=== PATIENT | male | born 1940 | race Caucasian/White ===

== ENCOUNTER 2019-03-04 10:23 | Inpatient (IN) ==
--- NOTE | 2019-03-04 14:03 | PDOC ---
HPI - History of Present Illness History of Present Illness: Is a very nice 79-year-old gentleman who was operated on his right hip while doing physical therapy sustained a fall and fractured his hip and radiograph confirmed the periprosthetic femur fracture was called by Jarrod Appiah's is the PA to admit the patient is a direct admit for pain control Patient is 3 weeks post-op s/p Right ZULMA. Past Medical History Medical History: 1. Remote myocardial infarction and known coronary artery disease. 2. History of ureteral cancer. 3. History of lung cancer. 4. Hyp ertension. 5. Diabetes mellitus type II. 6. Right hip arthritis Surgical History: Radiation therapy for lung cancer, prior ureteral and kidney removal for cancer Past Social History: Quit smoking remotely almost 30 years ago. Rarely drinks alcohol. Had 4 children but only 2 daughters are still living. Is a of about a decade. Travels frequently. Tobacco Use: Former Smoker In the Past 12 Months, Have Used or Abuse Any of the Following Substance: None Medication / Allergies Home Medications: Home Medications Medication Instructions Recorded Confirmed Amitriptyline HCl 50 mg PO BEDTIME 02/08/19 02/10/19 Aspirin [Aspir 81] 81 mg PO DAILY 02/08/19 02/08/19 Ezetimibe/Simvastatin 1 ea PO DAILY 02/08/19 02/08/19 [Ezetimibe-Simvastatin 10-80 mg] Felodipine [Felodipine ER] 10 mg PO DAILY 02/08/19 02/08/19 Fenofibrate [Tricor] 145 mg PO DAILY 02/08/19 02/08/19 Losartan Potassium 100 mg PO DAILY 02/08/19 02/08/19 Metoprolol Succinate [Toprol XL] 100 mg PO DAILY 02/08/19 02/08/19 Sitagliptin Phosphate [Januvia] 100 mg PO DAILY 02/08/19 02/08/19 glipiZIDE Tab [Glucotrol Tab] 5 mg PO DAILY 02/08/19 02/08/19 Hydrocodone/Acetaminophen [[place]ite 1 - 2 ea PO Q4-6H PRN #60 tab 02/09/19 7.5-325 Tablet] Calcium Polycarbophil [Fiber Tabs] 2 tab PO DAILY 02/10/19 02/10/19 Glucosam/Chondr/Collagn/Hyalur 2 cap PO DAILY 02/10/19 02/10/19 [Glucosamine & Chondroitin Cap] Multivitamin [Once Daily] 1 tab PO DAILY 02/10/19 02/10/19 Acetaminophen [Tylenol] 325 - 650 mg PO Q4H PRN tab 02/11/19 Pantoprazole Sodium [Protonix] 40 mg PO QD 03/04/19 03/04/19 Allergies/Adverse Reactions: Allergies Allergy/AdvReac Type Severity Reaction Status Date / Time No Known Allergies Allergy Verified 03/04/19 12:41 Exam - Vitals Vital Signs: Vital Signs Temperature 97.5 F Temperature Source Temporal Artery Scan Pulse Rate [Pulse Oximeter] 94 Pulse Rate 94 Respiratory Rate 16 Blood Pressure [Right Arm] 124/66 Blood Pressure 124/66 Pulse Ox 91 Oxygen Flow Rate 1 Oxygen Delivery Method Room Air Height 5 ft 9 in Weight 213 lb Results - Labs CBC and BMP: 03/04/19 15:15 03/04/19 15:15 Assessment and Plan - Patient Problems (1) Hip fracture, right Current Visit: Yes Status: Acute Comment: Deferred to Dr. Appiah and Jarrod for preoperative care and DVT prophylaxis Code(s): S72.001A - Fracture of unspecified part of neck of right femur, initial encounter for closed fracture (2) Chronic kidney disease Current Visit: No Status: Acute Comment: We'll hydrate the patient to optimize his kidney function with LR 125 an hour Code(s): N18.9 - Chronic kidney disease, unspecified Qualifiers: Chronic kidney disease stage: stage 3 (moderate) Qualified Code(s): N18.3 - Chronic kidney disease, stage 3 (moderate) (3) Diabetes mellitus type II, controlled Current Visit: No Status: Acute Comment: Continue current medication Code(s): E11.9 - Type 2 diabetes mellitus without complications Qualifiers: Diabetes mellitus residential insulin use: without superintendent marine oil terminal use Diabetes mellitus complication status: without complication Qualified Code(s): E11.9 - Type 2 diabetes mellitus without complications (4) Hypertension Current Visit: No Status: Acute Code(s): I10 - Essential (primary) hypertension Qualifiers: Hypertension type: essential hypertension Qualified Code(s): I10 - Essential (primary) hypertension
[2019-03-04] MEDS ORDERED: CYCLOBENZAPRINE 10 MG TABLET PO PRN (14:24)
--- NOTE | 2019-03-04 14:42 | ORTHO.PROG ---
Last Taken Vital Signs: Vital Signs - Last Taken Temperature 97.5 F 03/04/19 12:52 Pulse Rate 94 03/04/19 12:52 Respiratory Rate 16 03/04/19 12:52 Blood Pressure 124/66 03/04/19 12:52 Pulse Ox 91 03/04/19 12:52 Subjective: Patient is 3 weeks post-op s/p Right ZULMA. He suffered an incident at PT yesterday where he felt a snap in his hip with an acute onset of pain. Radiographs confirmed a noy-prosthetic femur fracture. Patient reports right hip pain as well as pain extending down his right femur. The pain medication is helping when he is not moving, but he has increased pain with ambulation or movement of the hip. Denies any current calf pain, CP, SOB, F/C, radiculopathy, or paresthesias. Objective: On exam, he is A&O x 3. He is comfortably laying the hospital bed. He is tender over the lateral hip and distal femur. ROM of the hip not tested. FAROM of the ankle and toes without difficulties. Negative calf tenderness. NV intact. Assessment: 3 weeks s/p Right ZULMA with 1 day following a noy-prosthetic femur fracture requiring revision of the femoral component. Patient admitted to the hospital for pain management until surgery. Plan: * femur fracture: scheduled for surgery with Dr. Appiah Friday for right ZULMA revision of femoral component with cables * Pain meds: continue hydrocodone 7.5/325mg 1-2 tabs every 4-6 hours prn pain; hospitalist will control breakthrough pain * Muscle spasms: continue flexeril 10mg 1 tab every 8 hours prn * TTWB with walker * DVT ppx: lovenox 30mg SC BID and SCDs * femur pain: 2 view right femur radiographs ordered * H/H ordered for baseline blood counts following fracture * consult PT to assist with ambulation as tolerated to keep patient moving until surgery * regular diet * call myself or Dr. Appiah with any orthopedic related questions
--- NOTE | 2019-03-04 15:29 | DI ---
RIGHT FEMUR EXAM, 03/04/2019 2:26 PM: Clinical History: Right femur fracture. Comparison Study: AP pelvis and right hip, 02/09/2019. Views: 3 views. Soft Tissues: No soft tissue swelling. Effusion: No joint effusion present. Joints: Status post total right hip replacement. Bones: There is a fracture through the lesser trochanter and the prosthetic femoral shank has become impacted further into the femoral shaft by approximately 3 cm. The prosthetic joint articulates isatu lly. Reading: Fracture of the lesser trochanter with impaction of the metallic femoral shank into the teller femora l shaft by approximately 3 cm.
[2019-03-04 15:35] LABS: BLOOD UREA NITROGEN 31 mg/dL (7-22); BUN/CREATININE RATIO 18.23 (6-20)
[2019-03-04 15:37] LABS: Hematocrit [HCT] 40.8 % (42.0-52.0); Hemoglobin [HGB] 13.2 g/dL (14.0-18.0); MEAN CORPUSCULAR HGB CONC 32.4 g/dL (33-37); MEAN CORPUSCULAR VOLUME 94.2 FL (80-90); MEAN PLATELET VOLUME 9.4 FL (7.4-12.2); RED BLOOD COUNT 4.33 10^6/uL (4.70-6.10)
[2019-03-04] MEDS ORDERED: HYDROmorphone 2 MG/1 ML IVP PRN (16:28)
[2019-03-04] MEDS ORDERED: ACETAMINOPHEN 325 MG TABLET PO PRN (16:40)
[2019-03-04] MEDS ORDERED: ONDANSETRON 4 MG/2 ML VIAL IVP PRN (16:40)
[2019-03-04] MEDS ORDERED: LIDOCAINE W/ SODIUM BICARB 0.5 ML SYR SUBD PRN (16:40)
[2019-03-04] MEDS ORDERED: LIDOCAINE HCL 2 % 10 ML JELLY URO-JECT TOPICAL PRN (16:40)
[2019-03-04] MEDS ORDERED: CALCIUM CARBONATE 500 MG (TUMS) CHEWABLE TABLET PO PRN (16:40)
[2019-03-04] MEDS ORDERED: DOCUSATE 100 MG CAPSULE PO PRN (16:40)
[2019-03-04] MEDS: Lactated Ringers 1,000 ML PRIMARY IV SCH (17:21)
[2019-03-04] MEDS: HYDROcodone-APAP 7.5 MG-325 MG TABLET PO PRN (20:03)
[2019-03-04] MEDS: AMITRIPTYLINE 25 MG TABLET PO SCH (20:04)
[2019-03-04] MEDS: ENOXAPARIN SODIUM 30 MG/0.3 ML SYRINGE SUBCUT SCH (20:06)
[2019-03-05 05:28] LABS: BASOPHILS # (AUTO) 0.01 10*3/UL; BASOPHILS % (AUTO) 0.1 % (0-1); EOSINOPHILS # (AUTO) 0.15 10*3/UL; EOSINOPHILS % (AUTO) 1.7 % (0-8); Hematocrit [HCT] 40.4 % (42.0-52.0); Hemoglobin [HGB] 12.8 g/dL (14.0-18.0); LYMPHOCYTES # (AUTO) 2.51 10*3/uL; MEAN CORPUSCULAR HGB CONC 31.7 g/dL (33-37); MEAN CORPUSCULAR VOLUME 94.8 FL (80-90); MEAN PLATELET VOLUME 9.9 FL (7.4-12.2); MONOCYTES # (AUTO) 1.33 10*3/UL (0.3-0.8); MONOCYTES % (AUTO) 15.4 % (5-15); NEUTROPHILS # (AUTO) 4.55 10*3/UL; NEUTROPHILS % (AUTO) 52.9 % (50-80); RED BLOOD COUNT 4.26 10^6/uL (4.70-6.10)
[2019-03-05 05:33] LABS: PLATELET MORPHOLOGY COMMENT NORMAL MORPHOLOGY (NORM); RBC MORPHOLOGY COMMENT NORMAL MORPHOLOGY (NORM); WBC MORPHOLOGY COMMENT NORMAL MORPHOLOGY (NORM)
[2019-03-05 05:43] LABS: BLOOD UREA NITROGEN 27 mg/dL (7-22); SERUM ALBUMIN 3.6 g/dL (3.5-4.8)
[2019-03-05] MEDS: PANTOPRAZOLE 40 MG TABLET PO SCH (06:51)
[2019-03-05] MEDS ORDERED: Simvastatin Tab 80 MG TAB PO SCH (09:00)
[2019-03-05] MEDS: HYDROcodone-APAP 7.5 MG-325 MG TABLET PO PRN ×3 (09:29→20:37)
[2019-03-05] MEDS: sitaGLIPtin Tab 100 MG TAB PO SCH (09:30)
[2019-03-05] MEDS: EZETIMIBE 10 MG TABLET PO SCH (09:30)
[2019-03-05] MEDS: FELODIPINE ER 5 MG TABLET PO SCH (09:30)
[2019-03-05] MEDS: ASPIRIN EC 81 MG TABLET PO SCH (09:30)
[2019-03-05] MEDS: FENOFIBRATE 145 MG TABLET PO SCH (09:30)
[2019-03-05] MEDS: METOPROLOL SUCCINATE 100 MG SR 24H TABLET PO SCH (09:30)
[2019-03-05] MEDS: ENOXAPARIN SODIUM 30 MG/0.3 ML SYRINGE SUBCUT SCH ×2 (09:33→20:21)
--- NOTE | 2019-03-05 10:57 | PT.PROG ---
Progress Note Progress Note: PT Treatment Time: 15 minutes S: Patient reports that his hip continues to be painful. O: Patient required mod assist for bed mobility. Patient sat EOB with CGA for balance. Patient requires min assist for balance with TTWB ambulation. Patient ambulated 5 feet to his chair and performed x5 sit to stands. patient was left in his chair with his feet elevated, ice on his hip, call light and necessities within reach. A: Patient tolerated treatment session fair with complaints of increased pain with movement. P: Continue per plan of care.
--- NOTE | 2019-03-05 11:26 | PDOC(PROG) ---
Interval History: Doing well no complaints well rehydrated Objective : Data - Labs CBC and BMP: 03/05/19 04:05 03/05/19 04:05 Objective : Exam - General General Appearance: Cooperative - Respiratory Respiratory Exam: Clear to Auscultation - Bilaterally, Breathing Non Labored, Normal To Percussion, Normal to Percussion and Palpation - Cardiovascular Cardiovascular Exam: RRR, No Murmur, No Clicks, No Gallops, No Rubs, PMI Non- Displaced - GI/Abdominal GI/Abdominal Exam: Normal Bowel Sounds, Non Tender, Non Distended, Soft, No Masses, No Hepatomegaly, No Splenomegaly, No Organomegaly Assessment and Plan - Patient Problems (1) Hip fracture, right Current Visit: Yes Status: Acute Comment: Deferred to orthopedic team Code(s): S72.001A - Fracture of unspecified part of neck of right femur, initial encounter for closed fracture (2) Chronic kidney disease Current Visit: No Status: Acute Comment: Prerenal patient was rehydrated and his BUN/creatinine is improving Code(s): N18.9 - Chronic kidney disease, unspecified Qualifiers: Chronic kidney disease stage: stage 3 (moderate) Qualified Code(s): N18.3 - Chronic kidney disease, stage 3 (moderate) (3) Diabetes mellitus type II, controlled Current Visit: No Status: Acute Comment: Stable Code(s): E11.9 - Type 2 diabetes mellitus without complications Qualifiers: Diabetes mellitus residential insulin use: without terminal carman use Diabetes mellitus complication status: without complication Qualified Code(s): E11.9 - Type 2 diabetes mellitus without complications (4) Hypertension Current Visit: No Status: Acute Code(s): I10 - Essential (primary) hypertension Qualifiers: Hypertension type: essential hypertension Qualified Code(s): I10 - Esse ntial (primary) hypertension
--- NOTE | 2019-03-05 14:27 | PTI REPORT ---
Thank you for the referral of Marcelino Soni. He was seen on 03/04/19 for an inpatient evaluation status post right hip fracture. SUBJECTIVE: The patient is an 79-year-old male who states that he had a right total hip replacement with a posterior approach on February 09, 2019. The surgery was performed by Dr. Appiah. The patient states that he was staying up in [place] with his daughter. He states that he was at physical therapy when he was stepping sideways on the hurdles. He states that he turned his leg funny and when he stepped he felt a crack and fell onto the ground. He states that he went back home to his daughters but did present today due to his hip pain and was found to have a hip fracture. He states that he will have surgery on Friday, March 08, 2019. The patient reports that at this time he is having right hip pain of 2 to 3/10 on the verbal analog scale (0=no pain, 10=worst pain). The patient states he is doing well but would like to try to get up in order to use the bathroom. Per orders, he is to be toe touch weight-bearing on the right side. The patient states that he does live in [place]. He reports that he lives alone and has no stairs besides some to the basement, which he does not need to go into regularly. The patient reports that after this surgery he will go back to his daughter's up in [place] and he states that she does have two steps into the home. PAST MEDICAL HISTORY: Past medical history can be found in the patient's medical record. OBJECTIVE FINDINGS: General observations: The patient was alert and oriented to setting upon PT arrival. The patient was supine in bed on one liter of oxygen. Bed mobility: The patient was able to transfer with assist of two to seated edge of bed. He did need some help to maneuver his right lower extremity. Transfers: A gait belt was placed around the patient and he was instructed on how to properly toe touch weight-bear on the right side with a walker. The patient transferred from a seated to standing position with verbal cueing and contact guard assist. The patient demonstrated fair initial standing balance with hand hold assist x2 on the walker. Ambulation: The patient ambulated 25 feet to the bathroom. He was able to maintain toe touch weight-bearing with very minimal cueing and did very well. He did need additional cueing when trying to perform turns with the walker. The patient was able to complete toileting activities independently but does require contact guard assist and cueing for proper placement of his right foot for transfers to sitting and from sitting to standing. The patient then ambulated 20 feet to the chair and transferred into the chair. He did have some difficulties controlling his descent into the chair and did kind of plop backwards. He was able to reposition himself in the chair after that. ASSESSMENT: The patient has good rehab potential. Problem List: Right hip fracture awaiting surgical repair on Friday Difficulties with ambulation Weight-bearing precautions of toe touch weight-bearing Difficulties with transfers due to right hip pain Physical Therapy Goals: To be met by discharge from inpatient: We will re-evaluate the patient after his surgery on Friday. Patient will be able to transfer from bed to stand with stand by assist x1. Patient will be able to ambulate with the walker following proper weight-bearing precautions of toe touch weight-bearing for at least 100 feet. TREATMENT PLAN: Patient will be seen B.I.D during the week and one time per day over the weekend as an inpatient to address the above goals and objectives. The patient will have surgery on Friday and we will pick him up after his surgery for further rehab after change in status. INITIAL TREATMENT: Treatment today consisted of the initial evaluation only. Following treatment the patient was left in chair with SCDs in place, call light within reach, and chair alarm set. ANG
[2019-03-05] MEDS ORDERED: diphenhydrAMINE 25 MG CAPSULE PO PRN (15:36)
--- NOTE | 2019-03-05 15:38 | PT.PROG ---
Progress Note Progress Note: S: pt reports he continues to have pain in his hip O: nsg okay'd prior to PT. pt instructed in sit to supine transfer with max assist x 1 , seated EOB balance is good. pt required CGA x 1 for sit to stand transfer with walker TTWB RLE. pt instructed to ambulate 15 feet around his room with CGA x 1 and TTWB R LE w walker. pt fatigued and was instructed to transfer to his chair with moderate cuing and walker RLE TTWB. pt left in his chair with call light within reach and chair alarm activated. A: pt tolerated therapy well today, continues to have pain. continues to benefit from skilled therapy to improve functional mobility prior to surgery. P: cont per POC
--- NOTE | 2019-03-05 15:46 | ORTHO.PROG ---
Last Taken Vital Signs: Vital Signs - Last Taken Temperature 97.5 F 03/05/19 13:00 Pulse Rate 94 03/05/19 15:00 Respiratory Rate 20 03/05/19 13:00 Blood Pressure 107/53 03/05/19 13:00 Pulse Ox 95 03/05/19 13:00 Subjective: Patient reports he did not sleep well last night. He has a lot on his mind with his current situation. He states his pain is currently controlled. Denies any CP, calf pain, SOB, F/C, paresthesias, or radiculopathy. Objective: Laboratory Results 03/04/19 03/04/19 03/05/19 15:15 15:15 04:05 WBC 11.30 H 8.61 RBC 4.33 L 4.26 L Hgb 13.2 L 12.8 L Hct 40.8 L 40.4 L MCV 94.2 H 94.8 H MCH 30.5 30.0 MCHC 32.4 L 31.7 L RDW Std Deviation 48.2 47.6 RDW Coeff of Adán 14.3 14.1 Plt Count 365 H 331 MPV 9.4 9.9 Immature Gran % (Auto) 0.7 Neut % (Auto) 52.9 Lymph % (Auto) 29.2 [place] % (Auto) 15.4 H Eos % (Auto) 1.7 Baso % (Auto) 0.1 Immature Gran # (Auto) 0.06 Neut # (Auto) 4.55 Lymph # (Auto) 2.51 [place] # (Auto) 1.33 H Eos # (Auto) 0.15 Baso # (Auto) 0.01 WBC Morphology Comment Normal morphology Plt Morphology Comment Normal morphology RBC Morph Comment Normal morphology Sodium Potassium Chloride Carbon Dioxide Anion Gap BUN Creatinine BUN/Creatinine Ratio Glucose Calculated Osmolality Calcium Total Bilirubin AST ALT Alkaline Phosphatase Troponin I < 0.012 Total Protein Albumin Globulin Albumin/Globulin Ratio 03/05/19 04:05 WBC RBC Hgb Hct MCV MCH MCHC RDW Std Deviation RDW Coeff of Adán Plt Count MPV Immature Gran % (Auto) Neut % (Auto) Lymph % (Auto) [place] % (Auto) Eos % (Auto) Baso % (Auto) Immature Gran # (Auto) Neut # (Auto) Lymph # (Auto) [place] # (Auto) Eos # (Auto) Baso # (Auto) WBC Morphology Comment Plt Morphology Comment RBC Morph Comment Sodium 136 Potassium 4.8 Chloride 104 Carbon Dioxide 24 Anion Gap 8 BUN 27 H Creatinine 1.5 BUN/Creatinine Ratio 18.00 Glucose 93 Calculated Osmolality 286.0 Calcium 9.6 Total Bilirubin 0.4 AST 26 ALT 23 Alkaline Phosphatase 87 Troponin I Total Protein 6.3 Albumin 3.6 Globulin 2.8 Albumin/Globulin Ratio 1.20 L On exam, the patient is A&O x 3 sitting in chair comfortably. AROM of the right ankle and foot without difficulties. Negative calf tenderness. NV intact. Assessment: Right noy-prosthetic femur fracture awaiting surgical revision of femoral component on Friday. Plan: * Pain meds: continue Hydrocodone prn * Muscle spasms: continue Flexeril prn * insomnia: may take Benadryl as needed. * DVT ppx: continue lovenox 30mg BID and SCDs * continue PT as tolerated * TTWB with walker * periprothetic femur fx: surgery Friday with Dr. Appiah; needs to be NPO after midnight the night before surgery * ice to right hip * incentive spirometer every hour while awake * call myself or Dr. Appiah over the weekend for any orthopedic related questions
[2019-03-05] MEDS: AMITRIPTYLINE 25 MG TABLET PO SCH (20:22)
[2019-03-05] MEDS: Simvastatin Tab 80 MG TAB PO SCH (20:22)
[2019-03-06] MEDS: PANTOPRAZOLE 40 MG TABLET PO SCH (06:36)
[2019-03-06] MEDS: Lactated Ringers 1,000 ML PRIMARY IV SCH ×2 (06:37→13:43)
[2019-03-06] MEDS: ENOXAPARIN SODIUM 30 MG/0.3 ML SYRINGE SUBCUT SCH ×2 (08:45→20:56)
[2019-03-06] MEDS: HYDROcodone-APAP 7.5 MG-325 MG TABLET PO PRN ×3 (08:45→20:59)
[2019-03-06] MEDS: METOPROLOL SUCCINATE 100 MG SR 24H TABLET PO SCH (08:45)
[2019-03-06] MEDS: FENOFIBRATE 145 MG TABLET PO SCH (08:46)
[2019-03-06] MEDS: EZETIMIBE 10 MG TABLET PO SCH (08:46)
[2019-03-06] MEDS: sitaGLIPtin Tab 100 MG TAB PO SCH (08:46)
[2019-03-06] MEDS: ASPIRIN EC 81 MG TABLET PO SCH (08:46)
[2019-03-06] MEDS: FELODIPINE ER 5 MG TABLET PO SCH (08:46)
--- NOTE | 2019-03-06 10:23 | PDOC(PROG) ---
Interval History: Patient has no complaints she he states his pain is controlled he said it was fighting the the bed this morning sheets were all over the place. No nausea no vomiting no chest pain Objective : Data - Labs CBC and BMP: 03/05/19 04:05 03/05/19 04:05 Objective : Exam - General General Appearance: No Acute Distress, Cooperative - Neck Neck Exam: Normal Inspection, Full ROM, No Tenderness - Respiratory Respiratory Exam: Clear to Auscultation - Bilaterally, Breathing Non Labored, Normal To Percussion, Normal to Percussion and Palpation - Cardiovascular Cardiovascular Exam: RRR, No Murmur, No Clicks, No Gallops, No Rubs, PMI Non- Displaced - GI/Abdominal GI/Abdominal Exam: Normal Bowel Sounds, Non Tender, Non Distended, Soft, No Masses, No Hepatomegaly, No Splenomegaly, No Organomegaly - Extremities Extremities Exam: No Clubbing Present, No Edema Present, No Cyanosis Present - Neurological Neurological Exam: Alert, Oriented x 3, No Facial Droop, Speech Intact / Clear, Moves All Extremities Equally Assessment and Plan - Patient Problems (1) Hip fracture, right Current Visit: Yes Status: Acute Comment: Deferred to orthopedic surgery for PTOT anticoagulation, scheduled for surgery on Friday Code(s): S72.001A - Fracture of unspecified part of neck of right femur, initial encounter for closed fracture (2) Chronic kidney disease Current Visit: No Status: Acute Comment: I've hydrated the patient BUN/creatinine within normal limits now Pereira in place continue PT as ordered by orthopedic surgery team Code(s): N18.9 - Chronic kidney disease, unspecified Qualifiers: Chronic kidney disease stage: stage 3 (moderate) Qualified Code(s): N18.3 - Chronic kidney disease, stage 3 (moderate) (3) Diabetes mellitus type II, controlled Current Visit: No Status: Acute Comment: I have held glipizide which could cause hypoglycemia if patient is not eating full diet and also needs to be nothing by mouth for surgery he is continuing his Janumet Code(s): E11.9 - Type 2 diabetes mellitus without complications Qualifiers: Diabetes mellitus senior care insulin use: without senior care use Diabetes mellitus complication status: without complication Qualified Code(s): E11.9 - Type 2 diabetes mellitus without complications (4) Hypertension Current Visit: No Status: Acute Code(s): I10 - Essential (primary) hypertension Qualifiers: Hypertension type: essential hypertension Qualified Code(s): I10 - Essential (primary) hypertension
[2019-03-06] MEDS: AMITRIPTYLINE 25 MG TABLET PO SCH (20:56)
[2019-03-06] MEDS: Simvastatin Tab 80 MG TAB PO SCH (20:56)
[2019-03-07 05:14] LABS: BASOPHILS # (AUTO) 0.01 10*3/UL; BASOPHILS % (AUTO) 0.1 % (0-1); EOSINOPHILS # (AUTO) 0.27 10*3/UL; EOSINOPHILS % (AUTO) 3.4 % (0-8); Hematocrit [HCT] 38.4 % (42.0-52.0); Hemoglobin [HGB] 12.5 g/dL (14.0-18.0); LYMPHOCYTES # (AUTO) 1.79 10*3/uL; MEAN CORPUSCULAR HGB CONC 32.6 g/dL (33-37); MEAN CORPUSCULAR VOLUME 93.9 FL (80-90); MEAN PLATELET VOLUME 10.1 FL (7.4-12.2); MONOCYTES # (AUTO) 1.25 10*3/UL (0.3-0.8); MONOCYTES % (AUTO) 15.6 % (5-15); NEUTROPHILS # (AUTO) 4.61 10*3/UL; NEUTROPHILS % (AUTO) 57.6 % (50-80); RED BLOOD COUNT 4.09 10^6/uL (4.70-6.10)
[2019-03-07 05:21] LABS: BLOOD UREA NITROGEN 19 mg/dL (7-22); BUN/CREATININE RATIO 17.27 (6-20); SERUM ALBUMIN 3.1 g/dL (3.5-4.8)
[2019-03-07 05:45] LABS: PLATELET MORPHOLOGY COMMENT NORMAL MORPHOLOGY (NORM); RBC MORPHOLOGY COMMENT NORMAL MORPHOLOGY (NORM); WBC MORPHOLOGY COMMENT NORMAL MORPHOLOGY (NORM)
[2019-03-07] MEDS: PANTOPRAZOLE 40 MG TABLET PO SCH (06:46)
[2019-03-07] MEDS: HYDROcodone-APAP 7.5 MG-325 MG TABLET PO PRN ×2 (08:35→20:12)
[2019-03-07] MEDS: ENOXAPARIN SODIUM 30 MG/0.3 ML SYRINGE SUBCUT SCH (08:35)
[2019-03-07] MEDS: FELODIPINE ER 5 MG TABLET PO SCH (08:36)
[2019-03-07] MEDS: ASPIRIN EC 81 MG TABLET PO SCH (08:36)
[2019-03-07] MEDS: METOPROLOL SUCCINATE 100 MG SR 24H TABLET PO SCH (08:36)
[2019-03-07] MEDS: sitaGLIPtin Tab 100 MG TAB PO SCH (08:36)
[2019-03-07] MEDS: FENOFIBRATE 145 MG TABLET PO SCH (08:36)
[2019-03-07] MEDS: EZETIMIBE 10 MG TABLET PO SCH (08:36)
--- NOTE | 2019-03-07 10:26 | PDOC(PROG) ---
Date of Service: 03/07/19 Time of Service: 10:30 Interval History: Subjective Patient was laying in bed doesn't appear in distress. He said he was a walking with physical therapy when he had the sudden onset of pain in the right hip and the therapist caught him and prevented him from falling. He was found to have a periprosthetic fracture. he is scheduled for surgery tomorrow morning. He is denying shortness of breath, chest pain, no nausea. Pain in the right hip seems to be controlled. Objective : Data - Labs CBC and BMP: 03/07/19 04:21 03/07/19 04:21 Objective : Exam - General General Appearance: No Acute Distress, Cooperative - Head Head Exam: Normal Inspection - Eye Eye Exam: Normal Appearance - ENT ENT Exam: Normal Exam - Neck Neck Exam: Normal Inspection - Respiratory Respiratory Exam: Clear to Auscultation - Bilaterally - Cardiovascular Cardiovascular Exam: RRR - GI/Abdominal GI/Abdominal Exam: Normal Bowel Sounds, Non Tender, Non Distended, Soft, No Organomegaly - Rectal Rectal Exam: Deferred - Extremities Extremities Exam: Normal Inspection - Back Back Exam: Normal Inspection Assessment and Plan - Patient Problems (1) Hip fracture, right Current Visit: Yes Status: Acute Comment: He is scheduled for surgery tomorrow. Will put him nothing by mouth after midnight. I think will DC the Lovenox, he did receive Lovenox this morning so we'll DC the nighttime dosage. In terms of risk of surgery he has one risk factor of the revised cardiac risk index factors, and that's his previous coronary artery disease, he did tolerate surgery in January so I think he is at an acceptable risk to proceed with surgery without the need for further testing. He denied symptoms like chest and denied shortness of breath. Code(s): S72.001A - Fracture of unspecified part of neck of right femur, initial encounter for closed fracture (2) Chronic kidney disease Current Visit: No Status: Acute Comment: Creatinine seemed to be improved. Continue holding Aldactone for now. Code(s): N18.9 - Chronic kidney disease, unspecified Qualifiers: Chronic kidney disease stage: stage 3 (moderate) Qualified Code(s): N18.3 - Chronic kidney disease, stage 3 (moderate) (3) Hypertension Current Visit: No Status: Acute Comment: Continue same medication. Losartan with and Aldactone were held I think we'll continue holding those. Code(s): I10 - Essential (primary) hypertension Qualifiers: Hypertension type: essential hypertension Qualified Code(s): I10 - Essential (primary) hypertension (4) Diabetes mellitus type II, controlled Current Visit: No Status: Acute Comment: Continue Deloris. Code(s): E11.9 - Type 2 diabetes mellitus without complications Qualifiers: Diabetes mellitus senior living insulin use: without intermediate teacher use Diabetes mellitus complication status: without complication Qualified Code(s): E11.9 - Type 2 diabetes mellitus without complications
--- NOTE | 2019-03-07 11:41 | OT.PROG ---
Progress Note Progress Note: S: pt stated that he was doing fine and agreed to therapy. O:tx consisted of bed mobility from supine to EOB independently, EOB seated LAQ's x15, ankle pumps x15, marches x15 and resistive hamstring curls with red RTB x15 each. pt also completed UE red RTB exercises in all planes x10 each. A: pt tolerated session well. pt is waiting for surgery but is able to complete most tasks independently. P: continue POC
--- NOTE | 2019-03-07 11:42 | OT.PROG ---
Progress Note Progress Note: S: pt stated that he was doing fine this morning and agreed to therapy. O:tx consisted of EOB seated LAQ's x15, ankle pumps x15, marches x15 and resistive hamstring curls with red RTB x15 each. pt also completed UE red RTB exercises in all planes x10 each. A: pt tolerated session well. pt reported some soreness in hip but it was mild. P: continue POC
--- NOTE | 2019-03-07 11:48 | OT.PROG ---
Progress Note Progress Note: S: pt stated that he wanted to get up. O: tx consisted of bed mobility from supine to EOB with MOD A, STS x2 with MOD A, functional ambulation x12' x2 with walker and CGA for safety, chair transfers x2. A: pt tolerated session well. pt wanted to get up and sit in his chair then return to bed. pt is improving in functional abilities. P: continue POC Addendum entered and electronically signed by Dania Wilkins 03/07/19 12:02: note written for wrong patient. void note
--- NOTE | 2019-03-07 12:16 | EKG ---
[address] [place] [address] Measurements Intervals [place] Rate: 94 P: 74 [place]: 202 QRS: 15 QRSD: 113 T: 39 QT: 352 QTc: 404 Interpretive Statements SINUS RHYTHM POSSIBLE ANTERIOR MYOCARDIAL INFARCTION [30 ms Q WAVE IN V3/V4, OR R < 0.2 mV IN V4], OF INDETERMINATE AGE No previous ECG available for comparison Electronically Signed On 03-07-19 14:56:41 MDT by Marcelino Whipple MD [email or web address]
[2019-03-07 14:14] LABS: BILIRUBIN,URINE NEGATIVE (NEG); CLARITY,URINE CLEAR (CLEAR); COLOR,URINE YELLOW (Y); GLUCOSE, URINE (UA) NEGATIVE (NEG); OCCULT BLOOD,URINE Trace-intact (NEG); PH,URINE 5.5 (5.0-8.5); PROTEIN,URINE 100 mg/dl (NEG)
[2019-03-07 14:17] LABS: URINE SAMPLE TYPE CATH SPECIMEN
[2019-03-07 14:21] LABS: RBC,URINE 0-1 /hpf; SQUAMOUS EPITHELIAL CELL,UR RARE
[2019-03-07] MEDS: Simvastatin Tab 80 MG TAB PO SCH (20:12)
[2019-03-07] MEDS: AMITRIPTYLINE 25 MG TABLET PO SCH (20:12)
[2019-03-08] MEDS: Lactated Ringers 1,000 ML PRIMARY IV SCH ×4 (03:26→23:17)
[2019-03-08] MEDS: PANTOPRAZOLE 40 MG TABLET PO SCH (06:32)
[2019-03-08] MEDS ORDERED: HYDROmorphone 2 MG/1 ML IVP PRN (06:52)
[2019-03-08] MEDS ORDERED: fentaNYL Inj 100 MCG/2 ML VIAL IVP PRN (06:52)
[2019-03-08] MEDS ORDERED: ATROPINE SULFATE 0.4 MG/1 ML VIAL IVP PRN (06:52)
[2019-03-08] MEDS ORDERED: Prochlorperazine Edisylate Inj 10mg/2ml vial IVP PRN (06:52)
[2019-03-08] MEDS ORDERED: Ondansetron ODT Tab 8 MG TAB PO PRN ×2 (06:52→11:41)
[2019-03-08] MEDS ORDERED: LIDOCAINE W/ SODIUM BICARB 0.5 ML SYR SUBD PRN (06:52)
[2019-03-08] MEDS ORDERED: Gentamicin Inj 40 MG/ML VIAL ONE ×2 (07:00→09:42)
[2019-03-08] MEDS ORDERED: Sodium Chloride 0.9% vial 20 ML ONE (07:00)
[2019-03-08] MEDS ORDERED: Lactated Ringers 1,000 ML PRIMARY IV SCH (07:00)
[2019-03-08] MEDS ORDERED: BACITRACIN 50,000 UNIT VIAL IRRIG ONE (07:01)
[2019-03-08] MEDS ORDERED: EPINEPHrine Inj (1:1,000) 1 mg/ml amp ONE (07:07)
[2019-03-08] MEDS ORDERED: MIDAZOLAM 5 MG/1 ML ONE (07:08)
[2019-03-08] MEDS ORDERED: MORPHINE SULFATE/PF 10 MG/10 ML AMPULE ONE (07:08)
[2019-03-08] MEDS ORDERED: ePHEDrine Inj 50 MG/ML AMP ONE ×2 (07:09→07:30)
[2019-03-08] MEDS ORDERED: Sodium Chloride 0.9% 2,000 ML PRIMARY IV ONE (07:24)
[2019-03-08] MEDS ORDERED: PROPOFOL 10 MG/1 ML (200 MG/20 ML) VIAL IV ONE (07:35)
[2019-03-08] MEDS ORDERED: KETAMINE 100 MG/1 ML - 5 ML ONE (07:35)
[2019-03-08] MEDS ORDERED: ROCURONIUM 10 MG/1 ML - 5 ML VIAL IVP ONE (07:38)
[2019-03-08] MEDS ORDERED: SUCCINYLCHOLINE CHLORIDE 20 MG/1 ML - 10 ML ONE (07:39)
[2019-03-08] MEDS ORDERED: Lactated Ringers 1,000 ML PRIMARY IV ONE (07:45)
[2019-03-08] MEDS ORDERED: BUPivacaine Liposome/PF (Exparel) Inj 20ml vial INFIL ONE (08:00)
[2019-03-08] MEDS ORDERED: Ketorolac Inj 30 MG, Morphine Inj (Ortho Cocktail) 4 MG, BUPivacaine Inj 0.25% PF 150 MG SPLASH ONE ×3 (08:00)
[2019-03-08] MEDS ORDERED: PHENYLEPHRINE 10,000 MCG/1 ML VIAL ONE (08:20)
[2019-03-08] MEDS ORDERED: Sodium Chloride 0.9% vial 10 ML ONE (08:21)
[2019-03-08] MEDS ORDERED: ceFAZolin 1 GM VIAL ONE (08:29)
[2019-03-08] MEDS ORDERED: Sodium Chloride 0.9% 250 ML ONE (08:29)
[2019-03-08] MEDS ORDERED: TRANEXAMIC ACID 1,000 MG / 10 ML VIAL ONE (08:36)
[2019-03-08] MEDS ORDERED: ceFAZolin Inj 2 GM in Sodium Chloride 0.9% 100 ML IV ONE (09:11)
--- NOTE | 2019-03-08 09:23 | CRNA.PROCE ---
Central Neuraxis Block Placefl - - Safety Measures: Time Out Taken, Site Verified - - Type of Block: Subarachnoid Reason for Block: Surgical Moniters Used During Block: EKG, SPO2, NIBP Sedation Used - Enter Amount Used in Comment Field: Midazolam (mg): Yes (1.5), Fentanyl (mcg): Yes (50) Positioning: Sitting Skin Prep Used: ChloroPrep (Twice) Draped: Yes Skin Infiltration - Enter Amount Used in Comment Field: 1% Xylocaine (mL): Yes (1.5) Introducer User: None Spinal Needle Used: 22 Jose Angel 80 mm Local Anesthetic - Enter Amount Used in Comment Field: 0.75 % Bupivacaine with Dextrose (ml): Yes (2) Additive Used - Enter Amount Used in Comment Field: Preservative Free Morphine (mg): Yes (0.15), Epinephrine 1:1000 Needle Rinse (mL): Yes (rinse) Anesthesia Time - Other Weight: 96.615 kg Height: 5 ft 9 in Body Mass Index (BMI): 31.4
--- NOTE | 2019-03-08 09:25 | CRNA.PROGR ---
Anesthesia Time - Procedure/Recovery Time Start Date: 03/08/19 End Date: 03/08/19 Anesthesia : Time In: 07:43 Anesthesia : Time Out: 11:41 Anesthesia : Total Time: 238 - Block Time Start Date: 03/08/19 End Date: 03/08/19 PreOp Block : Time In: 07:25 PreOp Block : Time Out: 07:35 PreOp Block : Total Time: 10 - Total Anesthesia Time Total Anesthesia Time (minutes): 248 - Other Weight: 96.615 kg Height: 5 ft 9 in Body Mass Index (BMI): 31.4 Physical Status: P3 Anesthesia Type: Spinal Block (Both), General Anesthesia : ET
[2019-03-08] MEDS ORDERED: Vancomycin Inj 1gm vial ONE (10:24)
[2019-03-08] MEDS ORDERED: CALCIUM CARBONATE 500 MG (TUMS) CHEWABLE TABLET PO PRN ×2 (11:41→12:57)
[2019-03-08] MEDS ORDERED: Prochlorperazine Tab 10 MG TAB PO PRN (11:41)
[2019-03-08] MEDS ORDERED: ONDANSETRON 4 MG/2 ML VIAL IVP PRN ×2 (11:41→12:57)
[2019-03-08] MEDS ORDERED: BISACODYL 10 MG SUPPOSITORY RECTAL PRN (11:41)
[2019-03-08] MEDS ORDERED: diphenhydrAMINE 25 MG CAPSULE PO PRN (11:41)
[2019-03-08] MEDS ORDERED: IBUPROFEN 400 MG TABLET PO PRN (11:41)
[2019-03-08] MEDS ORDERED: BISACODYL 5 MG TABLET PO PRN (11:41)
[2019-03-08] MEDS ORDERED: ACETAMINOPHEN 325 MG TABLET PO PRN (11:41)
[2019-03-08] MEDS ORDERED: MAG HYDROX/AL HYDROX/SIMETH 30 ML SUSP PO PRN (11:41)
[2019-03-08 12:16] LABS: Hematocrit [HCT] 34.3 % (42.0-52.0); Hemoglobin [HGB] 10.8 g/dL (14.0-18.0)
--- NOTE | 2019-03-08 12:38 | DI ---
XR HIP COMPLETE MIN 2VW U/L,03/08/2019 12:07 PM: Clinical History: Postoperative changes of the right hip. Previous Exam: February 09, 2019 Findings: 3 views of the right hip are obtained, and demonstrate postsurgical changes consistent with a right t otal hip arthroplasty. There are cerclage wires noted of the proximal right femur in good position. A few peripheral vascular calcifications are noted. The Pereira catheter is seen in stable position. Impression: New cerclage wires around proximal right femur consistent with a right proximal femoral shaft fractur e. Stable right total hip arthroplasty.
[2019-03-08] MEDS ORDERED: MORPHINE SULFATE 2 MG/1 ML IVP PRN (12:57)
[2019-03-08] MEDS ORDERED: CYCLOBENZAPRINE 10 MG TABLET PO PRN (12:57)
[2019-03-08] MEDS: ASPIRIN EC 81 MG TABLET PO SCH (13:27)
[2019-03-08] MEDS: EZETIMIBE 10 MG TABLET PO SCH (13:27)
[2019-03-08] MEDS: FENOFIBRATE 145 MG TABLET PO SCH (13:27)
[2019-03-08] MEDS: METOPROLOL SUCCINATE 100 MG SR 24H TABLET PO SCH (13:27)
[2019-03-08] MEDS: sitaGLIPtin Tab 100 MG TAB PO SCH (13:27)
[2019-03-08] MEDS: FELODIPINE ER 5 MG TABLET PO SCH (13:27)
[2019-03-08] MEDS ORDERED: MORPHINE SULFATE 4 MG/1 ML IV PRN (13:30)
[2019-03-08] MEDS ORDERED: MORPHINE SULFATE 2 MG/1 ML IV PRN (13:30)
[2019-03-08] MEDS ORDERED: MORPHINE SULFATE 10 MG/1 ML IV PRN (13:30)
[2019-03-08] MEDS: HYDROcodone-APAP 7.5 MG-325 MG TABLET PO PRN ×3 (15:29→23:17)
--- NOTE | 2019-03-08 16:31 | OTI REPORT ---
Thank you for the referral of Marcelino Soni. He was seen on 03/08/19 for an occupational therapy inpatient evaluation status post right total hip replacement. SUBJECTIVE: The patient is an 79-year-old male who underwent a total hip replacement today. The patient reports that he did have his first total hip done on the right approximately three and a half to four weeks ago by Dr. Appiah. The patient was living with his daughter and completing rehab in [place]. The patient reports that while in [place] at therapy, the therapist was educating him on how to go over the hurdles and on his first step, he felt his hip pop and that is when his hip fractured again on the right. The patient was brought back here and had a new total hip surgery completed this morning. The patient reports he has a home in [place], but is currently living with his daughter for rehab. The patient reports he was independent prior to this recent fracture with ADLs and was using a cane for ambulation. PAST MEDICAL HISTORY: Past medical history can be found in the patient's medical record. OBJECTIVE FINDINGS: Activities of daily living/Functional Transfers: The patient was just out of surgery a few hours ago, so no ADLs or functional transfers were attempted as his spinal block still had the patient numb from the waist down. ASSESSMENT: Problem List: Decreased ability to complete ADLs Decreased ability to complete functional transfers Short-Term Goals: To be met by discharge from inpatient: Patient will be able to perform all activities of daily living mod independently. Patient will demonstrate upper extremity strength of 4+/5 or greater to assist with functional mobility. Patient will be able to perform functional transfers mod independently with assistive devices as needed. Long-Term Goals: To be met following discharge from inpatient: Patient will return home at prior level of function, independent with all functional transfers and ADLs. TREATMENT PLAN: Patient will be seen B.I.D during the week and one time per day over the weekend as an inpatient to address the above goals and objectives. INITIAL TREATMENT: Treatment today consisted of the initial evaluation ANG
--- NOTE | 2019-03-08 17:27 | PDOC(PROG) ---
Date of Service: 03/08/19 Time of Service: 17:15 Interval History: Subjective Patient was seen postsurgery. He said he has some pain in his hip otherwise he is doing okay. He did say he had some nausea when they stood him up for physical therapy but he is better now. Objective : Data - Labs CBC and BMP: 03/08/19 12:15 03/07/19 04:21 Objective : Exam - General General Appearance: No Acute Distress, Cooperative - Head Head Exam: Normal Inspection - Eye Eye Exam: Normal Appearance - ENT ENT Exam: Normal Exam - Neck Neck Exam: Normal Inspection - Respiratory Respiratory Exam: Clear to Auscultation - Bilaterally - Cardiovascular Cardiovascular Exam: RRR - GI/Abdominal GI/Abdominal Exam: Normal Bowel Sounds, Non Tender, Non Distended, Soft, No Organomegaly - Rectal Rectal Exam: Deferred - External Exam: Deferred - Extremities Additional Extremities Exam Details: No edema - Neurological Neurological Exam: Alert, Oriented x 3, CN II-XII Intact, No Facial Droop, Speech Intact / Clear - Psychiatric Psychiatric Exam: Normal Affect Assessment and Plan - Patient Problems (1) Hip fracture, right Current Visit: Yes Status: Acute Comment: Status post surgery. Management per Dr. Appiah. The patient wants referral to [facility] will talk to the environmental planner tomorrow. For DVT prophylaxis they put him on Lovenox. Code(s): S72.001A - Fracture of unspecified part of neck of right femur, initial encounter for closed fracture (2) Chronic kidney disease Current Visit: No Status: Acute Comment: We'll check his labs tomorrow. Code(s): N18.9 - Chronic kidney disease, unspecified Qualifiers: Chronic kidney disease stage: stage 3 (moderate) Qualified Code(s): N18.3 - Chronic kidney disease, stage 3 (moderate) (3) Hypertension Current Visit: No Status: Acute Comment: Resume his medication tomorrow Code(s): I10 - Essential (primary) hypertension Qualifiers: Hypertension type: essential hypertension Qualified Code(s): I10 - Essential (primary) hypertension (4) Diabetes mellitus type II, controlled Current Visit: No Status: Acute Comment: Same med Code(s): E11.9 - Type 2 diabetes mellitus without complications Qualifiers: Diabetes mellitus long term care social worker insulin use: without long term care social worker use Diabetes mellitus complication status: without complication Qualified Code(s): E11.9 - Type 2 diabetes mellitus without complications
[2019-03-08] MEDS: ceFAZolin Inj 2gm (Premix) 2 GM/50 ML BAG IV SCH (17:44)
[2019-03-08 18:56] VITALS: TEMP 98.5
[2019-03-08] MEDS ORDERED: DOCUSATE 100 MG CAPSULE PO SCH ×2 (21:00)
[2019-03-08] MEDS ORDERED: Simvastatin Tab 80 MG TAB PO SCH (21:00)
[2019-03-08 22:54] VITALS: BP 144/73; RESP 18
[2019-03-09 00:02] VITALS: O2SAT 93
[2019-03-09] MEDS ORDERED: METOPROLOL SUCCINATE 50 MG SR 24H TABLET PO ONE (00:38)
[2019-03-09] MEDS ORDERED: ASPIRIN EC 81 MG TABLET PO SCH (00:45)
[2019-03-09] MEDS: ceFAZolin Inj 2gm (Premix) 2 GM/50 ML BAG IV SCH (00:53)
[2019-03-09 00:55] LABS: BASOPHILS # (AUTO) 0.01 10*3/UL; BASOPHILS % (AUTO) 0.1 % (0-1); EOSINOPHILS # (AUTO) 0.02 10*3/UL; EOSINOPHILS % (AUTO) 0.2 % (0-8); Hematocrit [HCT] 30.6 % (42.0-52.0); LYMPHOCYTES # (AUTO) 1.55 10*3/uL; MEAN CORPUSCULAR HGB CONC 32.7 g/dL (33-37); MEAN CORPUSCULAR VOLUME 93.9 FL (80-90); MEAN PLATELET VOLUME 9.5 FL (7.4-12.2); MONOCYTES # (AUTO) 1.15 10*3/UL (0.3-0.8); MONOCYTES % (AUTO) 11.2 % (5-15); NEUTROPHILS # (AUTO) 7.48 10*3/UL; NEUTROPHILS % (AUTO) 72.8 % (50-80); RED BLOOD COUNT 3.26 10^6/uL (4.70-6.10)
[2019-03-09 00:56] LABS: PLATELET MORPHOLOGY COMMENT NORMAL MORPHOLOGY (NORM); RBC MORPHOLOGY COMMENT NORMAL MORPHOLOGY (NORM); WBC MORPHOLOGY COMMENT NORMAL MORPHOLOGY (NORM)
[2019-03-09] MEDS ORDERED: Heparin Drip 25,000 UNIT/500 ML BAG IV SCH (02:00)
--- NOTE | 2019-03-09 02:03 | DCSUMMARY ---
Hospitalization Summary Admit Date: 03/04/2019 Discharge Date: 03/09/19 Hospital Course: Transfer diagnoses 1. Likely NSTEMI, currently asymptomatic 2. Status post surgery for periprosthetic right hip fracture done 03/08/2019 3. Recent right total hip replacement in 02/09/2019 4. History of coronary artery disease with previous UT in 1987 with no intervention 5. History of lung cancer status post radiation treatment 6. History of kidney cancer status post left nephrectomy 7. History of diabetes 8. History of hypertension 9. History of arthritis 10. History of chronic kidney disease Hospital course This is an 79 years old male with medical history significant for history of hy pertension, diabetes, history of coronary artery disease with previous UT with no intervention in the past, history of previous lung cancer status post radiation, history of kidney cancer status post left nephrectomy, patient had recent right hip replacement done 02/09/2019 he did well after surgery until last when he felt a snap in his right hip with an acute onset of pain. X-ray confirmed periprosthetic fracture. Patient was admitted to the hospital here was admitted by Dr. Galdamez please see his note. His creatinine when he came in was 1.7, he was given some fluid and the spironolactone and losartan were withheld we continued with the rest of his medication including the metoprolol. He was put on Lovenox for DVT prophylaxis 30 mg twice a day. His creatinine on 03/07 was 1.1. He underwent surgery 03/08. I saw him after the surgery apart from pain in his right hip he denied chest pain or shortness of breath or palpitation. Late tonight it was noted that he is becoming ta chycardic about 124 we did an EKG which showed sinus tachycardia with ST depression from V3 to V6. He did have an EKG prior to the surgery and had Q waves in the anterior leads. No ST depression. Patient denied chest pain tonight and no shortness of breath or palpitation. He did receive aspirin and metoprolol. His blood pressure was 140 systolic while still receiving IV fluid. We gave 50 milligrams of the metoprolol and we did CBC is hemoglobin was 10. His troponin came back at 0.398. the patient sees the cardiology group in [place] so I spoke with the professional development director real estate acquisition analyst who suggested if it okay by the surgeon Dr. Appiah to start him on heparin then start him on heparin and transfer the patient. I did speak with Dr. Appiah he was fine with starting IV heparin. I did speak with the patient and told him about the recommendation of the professional development director to transfer him and he agreed to transfer. I did speak also with the hospitalist Dr. Miranda at [facility] and he accepted the patient. The professional development director recommended a CTA before admission to be done throught their ER but the hospitalist said he will accept the patient directly and order the CTA there. The patient will be started on IV heparin. Discharge instruction diet regular Activity toe-touch weightbearing Medications Active Medications Hydrocodone Bitart/Acetaminophen (Truro 7.5/325 Tab) 1 - 2 tab PO Q4H PRN PRN Reason: Pain Last Admin: 03/08/19 23:17 Dose: 2 tab Documented by: Aspirin (Aspirin Ec) 81 mg PO ONCE BENITO Last Admin: 03/09/19 00:53 Dose: 81 mg Documented by: Bisacodyl (Dulcolax Tab) 10 mg PO BID PRN PRN Reason: Constipation Calcium Carbonate (Tums) 1 - 2 tab PO Q6H PRN PRN Reason: Dyspepsia Cholecalciferol (Vitamin D3) 2,000 iu PO DAILY BENITO Cyclobenzaprine HCl (Flexeril) 10 mg PO TID PRN PRN Reason: Muscle Spasms Last Admin: 03/08/19 21:12 Dose: 10 mg Documented by: Docusate Sodium (Colace) 100 mg PO BID BENITO Last Admin: 03/08/19 20:09 Dose: 100 mg Documented by: Ezetimibe (Zetia) 10 mg PO DAILY BENITO Felodipine (Plendil Er) 10 mg PO DAILY BENITO Fenofibrate (Tricor) 145 mg PO DAILY [facility] Lactated Ringer's (Lr) 1,000 mls @ 100 mls/hr PRIMARY IV .Q10H [facility] Last Admin: 03/08/19 23:17 Dose: 100 mls/hr Documented by: Sodium Chloride (Normal Saline 0.9%) 25 mls @ 200 mls/hr IV .Post Infusion PRN PRN Reason: No Primary IV for Flush ONLY Cefazolin Sodium/Dextrose (Ancef Inj 2gm (Premix)) 2 gm in 50 mls @ 100 mls/hr IV Q8H [facility] Last Admin: 03/09/19 00:53 Dose: 100 mls/hr Documented by: Heparin Sodium/Dextrose (Heparin (Premix)) 25,000 unit in 500 mls @ 23.188 mls/hr IV .Per Protocol BENITO; Protocol Sodium Chloride (Normal Saline) 500 mls @ 30 mls/hr PRIMARY IV .[id number] [facility] Metoprolol Succinate (Toprol Xl) 100 mg PO DAILY [facility] Morphine Sulfate (Morphine Inj) 1 - 2 mg IV Q1H PRN PRN Reason: MODERATE TO SEVERE PAIN Morphine Sulfate (Morphine Inj) 3 - 4 mg IV Q1H PRN PRN Reason: MODERATE TO SEVERE PAIN Morphine Sulfate (Morphine Inj) 5 mg IV Q1H PRN PRN Reason: MODERATE TO SEVERE PAIN Ondansetron HCl (Zofran Inj) 4 mg IVP Q4H PRN PRN Reason: NAUSEA / VOMITING Pantoprazole Sodium (Protonix) 40 mg PO DAILY@0630 [facility] Simvastatin (Zocor) 80 mg PO BEDTIME [facility] Last Admin: 03/08/19 20:09 Dose: 80 mg Documented by: Sitagliptin Phosphate (Januvia Tab) 100 mg PO DAILY [facility] Follow-up per [facility] postdischarge Condition at transfer was stable for transfer Exam - Vitals Vital Signs: Vital Signs Temperature 98.5 F Temperature Source Oral Pulse Rate [Pulse Oximeter] 124 Pulse Rate 81 Respiratory Rate 18 Blood Pressure [Left Arm] 139/75 Blood Pressure [Right Arm] 144/73 Blood Pressure 105/58 Pulse Ox 93 Oxygen Flow Rate 3 Oxygen Delivery Method Nasal Cannula Height 5 ft 9 in Weight 213 lb - General General Appearance: No Acute Distress, Cooperative - Head Head Exam: Normal Inspection - Eye Eye Exam: POSITIVE: Normal Appearance - ENT ENT Exam: POSITIVE: Normal Exam - Neck Neck Exam: Normal Inspection - Respiratory Respiratory Exam: POSITIVE: Clear to Auscultation - Bilaterally - Cardiovascular Cardiovascular Exam: POSITIVE: RRR - GI/Abdominal GI/Abdominal Exam: POSITIVE: Normal Bowel Sounds, Non Tender, Non Distended, Soft - Rectal Rectal Exam: POSITIVE: Deferred - External Exam: POSITIVE: Deferred - Extremities Extremities Exam: POSITIVE: No Edema Present Patient Problems - Patient Problem List (1) Hip fracture, right Current Visit: Yes Status: Acute Code(s): S72.001A - Fracture of unspecified part of neck of right femur, initial encounter for closed fracture Category: Medical (2) Chronic kidney disease Current Visit: No Status: Acute Code(s): N18.9 - Chronic kidney disease, unspecified Qualifiers: Chronic kidney disease stage: stage 3 (moderate) Qualified Code(s): N18.3 - Chronic kidney disease, stage 3 (moderate) Category: Medical (3) Hypertension Current Visit: No Status: Acute Code(s): I10 - Essential (primary) hypertension Qualifiers: Hypertension type: essential hypertension Qualified Code(s): I10 - Essential (primary) hypertension Category: Medical (4) Diabetes mellitus type II, controlled Current Visit: No Status: Acute Code(s): E11.9 - Type 2 diabetes mellitus without complications Qualifiers: Diabetes mellitus fci insulin use: without middle or intermediate school principal use Diabetes mellitus complication status: without complication Qualified Code(s): E11.9 - Type 2 diabetes mellitus without complications Category: Medical
[2019-03-09] MEDS ORDERED: Sodium Chloride 0.9% 500 ML PRIMARY IV SCH (02:15)
[2019-03-09] MEDS ORDERED: HEPARIN 5000 UNIT/1 ML IV ONE (02:19)
[2019-03-09] MEDS: HYDROcodone-APAP 7.5 MG-325 MG TABLET PO PRN (02:46)
--- NOTE | 2019-03-09 06:21 | CRNA.PROGR ---
Anesthesia Note - Progress Notes Anesthesia Progress Note: Mr Soni was transfered to [place] last night because the hospitalist was concerned he was having a STEMI. Pt did not have chest pain or shortness of breath. Hgb was 10. Minimal discomfort in surgical site on transfer.
[2019-03-09] MEDS ORDERED: PANTOPRAZOLE 40 MG TABLET PO SCH (06:30)
[2019-03-09] MEDS ORDERED: sitaGLIPtin Tab 100 MG TAB PO SCH (09:00)
[2019-03-09] MEDS ORDERED: EZETIMIBE 10 MG TABLET PO SCH (09:00)
[2019-03-09] MEDS ORDERED: METOPROLOL SUCCINATE 100 MG SR 24H TABLET PO SCH (09:00)
[2019-03-09] MEDS ORDERED: FELODIPINE ER 5 MG TABLET PO SCH (09:00)
[2019-03-09] MEDS ORDERED: CHOLECALCIFEROL 1000 IU TABLET PO SCH (09:00)
[2019-03-09] MEDS ORDERED: ENOXAPARIN SODIUM 30 MG/0.3 ML SYRINGE SUBCUT SCH (09:00)
[2019-03-09] MEDS ORDERED: FENOFIBRATE 145 MG TABLET PO SCH (09:00)
--- NOTE | 2019-03-09 11:48 | PTI REPORT ---
Thank you for the referral of Marcelino Soni. He was seen on 03/08/19 for an inpatient evaluation status post right total hip arthroplasty and right hip fracture with ORIF. SUBJECTIVE: The patient is an 79-year-old male. The patient reports he recently had a posterior total hip done by Dr. Appiah and was doing very well with his rehab. He states he was in a physical therapy clinic up in [place] with immediate assistance by his side. He was stepping over a dov and felt a sharp pain and had fallen, which resulted in a hip fracture. He was brought back to the hospital and underwent surgery today to stabilize the fracture. He states he is hoping to get up as soon as possible. PAST MEDICAL HISTORY: Past medical history can be found in the patient's medical record. OBJECTIVE FINDINGS: Pain: The patient reported a pain level initially of 2/10 on the verbal analog scale (0=no pain, 10=worst pain) but this did increase to an 8/10 with motion. Bed mobility: The patient was able to perform bed mobility from supine to edge of bed with moderate assistance x1. The patient was able to sit unsupported edge of bed for over five minutes without difficulty. He required moderate assistance for the right lower extremity only from edge of bed back to bed. Transfers: The patient was able to perform a sit to stand transfer with verbal cues for toe touch weight-bearing on the right lower extremity only with use of a gait belt and walker. Ambulation: Ambulation was not attempted due to the patient's subjective complaints of feeling dizzy and lightheaded. His blood pressure was obtained and it was in the 130s/80s. Range of motion/Strength: Range of motion and strength were not formally tested. Incision: The patient's incision was unable to be inspected due to the surgical bandage. ASSESSMENT: Problem List: Pain in the right hip Decreased passive and active range of motion in the right hip Decreased strength in the right hip Short-Term Goals: To be met by discharge from inpatient: Patient will be able to transfer from bed to stand independently. Patient will be able to ambulate approximately 100 feet with walker, weight- bearing as tolerated. Patient will be able to ascend and descend five stairs with walker, weight- bearing as tolerated. Long-Term Goals: To be met following discharge from inpatient: Patient will be seen by outpatient physical therapy. TREATMENT PLAN: Patient will be seen B.I.D during the week and one time per day over the weekend as an inpatient to address the above goals and objectives. INITIAL TREATMENT: Treatment today consisted of the initial evaluation followed by the patient performing functional activities including bed mobility from supine to edge of bed, seated edge of bed ankle pumps, and long arc quads. He performed one sit to stand transfer with toe touch weight-bearing only on the right lower extremity. Ambulation was unable to be tested due to the patient's complaints of feeling lightheaded. The patient was transferred back into bed with his call light within reach. Tomorrow we will progress with ambulatory activities. ANG
--- NOTE | 2019-03-09 15:54 | EKG ---
[address] [place] [address] Measurements Intervals [place] Rate: 122 P: 74 ND: 160 QRS: 5 QRSD: 118 T: 85 QT: 315 QTc: 388 Interpretive Statements SINUS TACHYCARDIA POSSIBLE ANTERIOR MYOCARDIAL INFARCTION PROBABLY OLD ST DEPRESSION, CONSIDER SUBENDOCARDIAL INJURY OR ISCHEMIA Compared to ECG 03/07/2019 12:03:51 ST (T wave) deviation now present Sinus rhythm no longer present Myocardial infarct finding still present Electronically Signed On 03-09-19 17:16:46 MDT by Dwaine Dennison [email or web address]
[2019-03-10] MEDS ORDERED: BISACODYL 5 MG TABLET PO PRN (09:00)
== END 2019-03-09 03:33 | DRG 982 ==
LOC: MED/SURG 12:21 → OPS 03-08 06:31 → MED/SURG 03-08 13:03
PROVIDERS: ADMIT Internal Medicine; ATTEND Orthopaedic Surgery